=== PATIENT | male | born 1995 | race African-American/Black ===

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

== ENCOUNTER 2017-03-07 22:48 | Emergency (ER) | payer OTHER ==
[~2017-03-07] VITALS: Ht 177.8 cm; Wt 104.3 kg
[2017-03-07] MEDS ORDERED: NAPR500T PO (23:01)
--- NOTE | 2017-03-07 23:02 | PHYS DOC ---
Past Medical History Past Medical History: No Pertinent History Past Surgical History: No Surgical History Alcohol Use: None Drug Use: None Adult General Chief Complaint Chief Complaint: FOOT INJURY PAIN HPI HPI Patient is a 21 year old male presents for resents to the emergency department with bilateral foot pain. Patient states the pain began when he started his job 4 days ago. 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 He is ambulatory without difficulty. Review of Systems Review of Systems Constitutional: Denies fever or chills [] Eyes: Denies change in visual acuity, redness, or eye pain [] HENT: Denies nasal congestion or sore throat [] Respiratory: Denies cough or shortness of breath [] Cardiovascular: No additional information not addressed in HPI [] GI: Denies abdominal pain, nausea, vomiting, bloody stools or diarrhea [] : Denies dysuria or hematuria [] Musculoskeletal: Foot pain Integument: Denies rash or skin lesions [] Neurologic: Denies headache, focal weakness or sensory changes [] Endocrine: Denies polyuria or polydipsia [] Allergies Allergies Allergies Coded Allergies Type Severity Reaction Last Updated Verified No Known Drug Allergies 03/31/14 No Physical Exam Physical Exam Constitutional: Well developed, well nourished, no acute distress, non-toxic appearance. [] HENT: Normocephalic, atraumatic, bilateral external ears normal, oropharynx moist, no oral exudates, nose normal. [] Eyes: PERRLA, EOMI, conjunctiva normal, no discharge. [] Neck: Normal range of motion, no tenderness, supple, no stridor. [] Cardiovascular:Heart rate regular rhythm, no murmur [] Lungs & Thorax: Bilateral breath sounds clear to auscultation [] Abdomen: Bowel sounds normal, soft, no tenderness, no masses, no pulsatile masses. [] Skin: Warm, dry, no erythema, no rash. [] Back: No tenderness, no CVA tenderness. [] Extremities: Bilateral feet, no swelling, no erythema, no ecchymosis. He is tender to palpate over the plantar aspect of the foot. No pain with extension of the great toe. Neurovascular intact distally. Remainder for exam unremarkable. Neurologic: Alert and oriented X 3, normal motor function, normal sensory function, no focal deficits noted. [] Psychologic: Affect normal, judgement normal, mood normal. [] EKG EKG [] Radiology/Procedures Radiology/Procedures [] Course & Med Decision Making Course & Med Decision Making Pertinent Labs and Imaging studies reviewed. (See chart for details) [] Dragon Disclaimer Dragon Disclaimer This electronic medical record was generated, in whole or in part, using a voice recognition dictation system. Departure Departure Impression: Primary Impression: Plantar fasciitis, bilateral Disposition: HOME, SELF-CARE Condition: STABLE Referrals: MICHELLE CAPELLAN MD (PCP) Patient Instructions: Plantar Fasciitis Additional Instructions: Dr. Hart's shoe inserts Scripts Naproxen (NAPROSYN) 500 Mg Tablet 500 MG PO BID Y for PAIN, #20 TAB Prov: HOLLY JARA APRN 03/07/17 HOLLY JARA APRN Mar 07, 2017 23:01
[2017-03-07 23:17] VITALS: BP 156/81
== END 2017-03-07 23:17 | disposition home or self-care (01) ==
LOC: ER 22:48
DX: M72.2 Plantar fascial fibromatosis (principal)
CPT/HCPCS: 99282